=== PATIENT | male | born 1945 | race Two or more races ===

== ENCOUNTER 2020-01-25 22:42 | Emergency (ER) | payer SELFPAY ==
[~2020-01-25] VITALS: Ht 162.6 cm; Wt 52.2 kg
[2020-01-25 23:14] VITALS: BP 143/63
[2020-01-26] MEDS ORDERED: TETRACAINE 0.5% OPHTH SOLUTION 4ML BOTTLE. OD ONE (00:30)
[2020-01-26] MEDS ORDERED: TETRACAINE 0.5% OPHTH SOLUTION 4ML BOTTLE. ONE (00:30)
[2020-01-26] MEDS ORDERED: FLUORESCEIN OPHTH TEST STRIP. ONE (00:30)
[2020-01-26] MEDS ORDERED: FLUORESCEIN OPHTH TEST STRIP. OD ONE (00:30)
[2020-01-26] MEDS ORDERED: ERYTHROMYCIN 0.5% OPHTH OINTMENT 1GM TUBE. OD ONE (01:00)
[2020-01-26] MEDS ORDERED: ERYT1OIN6 OP (01:07)
[2020-01-26] MEDS ORDERED: TRAM50TA PO (01:07)
--- NOTE | 2020-01-26 01:07 | PHYS DOC ---
Past Medical History Past Medical History: No Pertinent History Past Surgical History: Other Additional Past Surgical Histo: "right leg surger s/p fall" Smoking Status: Never Smoker Alcohol Use: None General Adult EDM: Chief Complaint: FOREIGN BODY/EYES HPI: HPI: Patient is a 74 year old male who presents with complaints of foreign body sensation in the right eye. Patient reports that he was working on a radiator and a piece of plastic came up and struck him in the eye. This was about 4 days ago. Initially he had a little bit of pain and discomfort but over the next couple of days the pain persisted and is now to the point where he has redness of his eye, purulent drainage and matting. He denies any fever, chills but reports blurry vision although no loss of vision. No chest pain, shortness of breath. The pain is described as sharp, worse with blinking but not with eye movement, nonradiating and persistent. Review of Systems: Review of Systems: Constitutional: Denies fever or chills. [] Eyes: Denies change in visual acuity. [] HENT: Denies nasal congestion or sore throat. [] Respiratory: Denies cough or shortness of breath. [] Cardiovascular: Denies chest pain or edema. [] GI: Denies abdominal pain, nausea, vomiting, bloody stools or diarrhea. [] Heart Score: Risk Factors: Risk Factors: DM, Current or recent (<one month) smoker, HTN, HLP, family history of CAD, obesity. Risk Scores: Score 0 - 3: 2.5% MACE over next 6 weeks - Discharge Home Score 4 - 6: 20.3% MACE over next 6 weeks - Admit for Clinical Observation Score 7 - 10: 72.7% MACE over next 6 weeks - Early Invasive Strategies Current Medications: Current Medications Medications (Trade) Dose Ordered Sig/Na Start Time Stop Time Status Last Admin Dose Admin Fluorescein Sodium (Ful-Kristyn) 1 strip STK-MED ONCE 01/26/20 00:30 01/26/20 00:32 DC Tetracaine HCl (Tetracaine) 40 drop STK-MED ONCE 01/26/20 00:30 01/26/20 00:32 DC Allergies: Allergies: Allergies Coded Allergies Type Severity Reaction Last Updated Verified No Known Drug Allergies 01/26/20 No Physical Exam: PE: Constitutional: Well developed, well nourished, no acute distress, non-toxic appearance. [] HENT: Normocephalic, atraumatic, bilateral external ears normal, oropharynx moist, no oral exudates, nose normal. [] Eyes: PERRLA, EOMI, left conjunctive are normal without discharge, right conjunctivo-with erythema and purulent discharge, close inspection of the eye with adequate light and irrigation was performed. This did not reveal any foreign bodies. Fluorescein dye was then applied after tetracaine drops. A corneal abrasion at the 1:30 position was noted. I did not see any foreign bodies on the cornea, I did not see an ulcer. [] Neck: Normal range of motion, no tenderness, supple, no stridor. [] Cardiovascular:Heart rate regular rhythm, no murmur [] Lungs & Thorax: Bilateral breath sounds clear to auscultation [] Abdomen: Bowel sounds normal, soft, no tenderness, no masses, no pulsatile masses. [] [] Current Patient Data: Vital Signs: Vital Signs Date Time Temp Pulse Resp B/P (MAP) Pulse Ox O2 Delivery O2 Flow Rate FiO2 01/25/20 23:14 98.5 67 16 143/63 (89) 95 Room Air 98.5 EKG: EKG: [] Radiology/Procedures: Radiology/Procedures: [] Course & Med Decision Making: Course & Med Decision Making Pertinent Labs and Imaging studies reviewed. (See chart for details) 0101-patient was seen and examined. No evidence of an exigent medical or surgical problems identified. However the patient does have a corneal abrasion. I will refer to ophthalmology for follow-up, will treat with topical antibioti cs and pain medication [] Dragon Disclaimer: Dragon Disclaimer: This electronic medical record was generated, in whole or in part, using a voice recognition dictation system. Departure Departure Impression: Primary Impression: Corneal epithelial defect Additional Impression: Suppurative conjunctivitis Qualified Codes: H10.021 - Other mucopurulent conjunctivitis, right eye Disposition: HOME, SELF-CARE Condition: GOOD Referrals: NO PCP (PCP) CHUY ROBISON MD Patient Instructions: Bacterial Conjunctivitis, Eye - Corneal Abrasion Additional Instructions: Please call Dr. Robison's office on Monday morning and tell him you were seen in the emergency department. Scripts Tramadol Hcl (TRAMADOL HCL) 50 Mg Tablet 50 MG PO Q6HRS PRN for PAIN, #14 TAB Prov: AGUILA CEBALLOS MD 01/26/20 Erythromycin Base (Erythromycin) 1 Gm Oint...g. 0.5 INCH OP Q4-6HRS for 7 Days, MISC Half an inch to the right eye 4 times a day for 7 days Prov: AGUILA CEBALLOS MD 01/26/20 Justicifation of Admission Dx: Justifications for Admission: Justification of Admission Dx: N/A AGUILA CEBALLOS MD Jan 26, 2020 01:07
[2020-01-26] MEDS ORDERED: HYDROcodone/APAP 7.5/325MG 1 TAB TABLET PO ONE (01:15)
== END 2020-01-26 01:43 | disposition home or self-care (01) ==
LOC: ER 22:42
DX: S05.01XA Injury of conjunctiva and corneal abrasion without foreign body, right eye, initial encounter (principal); H10.021 Other mucopurulent conjunctivitis, right eye; H53.8 Other visual disturbances; Z98.890 Other specified postprocedural states; Y29.XXXA Contact with blunt object, undetermined intent, initial encounter; Y93.89 Activity, other specified; Y92.89 Other specified places as the place of occurrence of the external cause; Y99.8 Other external cause status
CPT/HCPCS: 99283